=== PATIENT | male | born 1970 | race American Indian/Alaskan Native ===

== ENCOUNTER 2016-09-21 21:37 | Emergency (ER) | payer SELFPAY ==
[2016-09-22 09:52] VITALS: BP 124/86
== END 2016-09-22 04:50 | disposition home or self-care (01) ==
LOC: ED 21:37
DX: R03.0 Elevated blood-pressure reading, without diagnosis of hypertension (principal); Z53.21 Procedure and treatment not carried out due to patient leaving prior to being seen by health care provider